=== PATIENT | male | born 1960 | race Caucasian/White ===

== ENCOUNTER 2016-11-14 08:51 | Day surgery (SDC) | payer OTHER ==
--- NOTE | 2016-11-18 10:50 | Operative Note ---
DATE OF SURGERY: 11/14/2016 REQUESTING PHYSICIAN: Wilson Samuels, DOSURGEON: Ana Young MD POSTOPERATIVE DIAGNOSES: 1. Two 5-6 mm sessile polyps in the cecum that were removed by cold snare. 2. A 3 mm rectal polyp that was removed by cold biopsy forceps. OPERATION: COLONOSCOPY and exam. REASON FOR PROCEDURE: This is a 56-year-old male with average risk for colorectal cancer who presented for screening colonoscopy. SEDATION: Sedation as per anesthesia. Pulse oximetry was monitored throughout the duration of the procedure to maintain O2 saturation of 90% or greater. Supplemental oxygen was administered via nasal cannula. Cardiac and vital signs were monitored throughout the duration of the procedure and they were stable. PROCEDURE: Description of the procedure of colonoscopy, risks, and alternatives to the procedure including the risk of bleeding and perforation among others were explained to the patient who voiced understanding and agreed to have the procedure done. A physical examination was performed and the patient was found stable for sedation. The patient was then placed in the left lateral position and sedation was initiated. Digital rectal exam was performed and showed small external hemorrhoids with no palpable rectal masses. A lubricated Olympus PCF-180AL colonoscope was then inserted into the rectum under direct visualization and was advanced to the cecum without difficulty. The ileocecal valve and appendiceal orifice were identified and photographed. The colonic mucosa was carefully examined upon insertion of the colonoscope. In the cecum were two 5-6 mm sessile polyps that were noted and were removed by cold snare. The colonoscope was then withdrawn while carefully examining the colonic mucosal surfaces. No other lesions were noted in the cecum, ascending colon, transverse colon, descending colon, and sigmoid colon. In the rectum was a 3 mm sessile polyp that was noted and was removed by cold biopsy forceps. The colonoscope was then withdrawn after retroflexion revealed no other lesions. The patient tolerated the procedure well without any complications. The patient remained with stable vital signs and was sent to the recovery room. PLAN AND RECOMMENDATIONS: 1. The patient is to be on a high-fiber diet. 2. The patient is to have repeat colonoscopy for surveillance in 3 or 5 years depending on histology of the polyps. Thank you for allowing me to participate in the care of this patient. Aan Young MD CC: DO JAMEE MonterrosoD
== END 2016-11-14 11:00 | disposition home or self-care (01) ==
LOC: HOP 08:51
PROVIDERS: ATTEND Internal Medicine Gastroenterology
DX: Z12.11 Encounter for screening for malignant neoplasm of colon (principal); D12.0 Benign neoplasm of cecum; D12.4 Benign neoplasm of descending colon; K62.1 Rectal polyp